=== PATIENT | male | born 2000 | race Asian ===

== ENCOUNTER 2024-07-13 22:11 | Emergency (ER) | payer MEDICAID ==
[~2024-07-13] VITALS: Ht 165.1 cm; Wt 74.0 kg
[2024-07-13 22:15] VITALS: O2SAT 100
[2024-07-13 23:47] LABS: HEMATOCRIT. 48.1 % (42.0-52.0); HEMOGLOBIN. 15.8 g/dL (14.0-18.0); MEAN CORPUSCULAR HGB CONC 32.8 g/dL (31.0-37.0); MEAN CORPUSCULAR VOLUME 91.4 fL (80.0-94.0); MEAN PLATELET VOLUME 8.7 fl (7.4-10.4); PLATELET 210 x1000/uL (130-400); RED BLOOD CELL COUNT 5.27 mill/uL (4.7-6.1); RED CELL DISTRIBUTION WIDTH 12.4 % (11.6-14.6); WHITE BLOOD COUNT 6.4 x1000/uL (4.5-11.0)
[2024-07-13] MEDS: SODIUM CHLORIDE 0.9% 1,000 ML IV ONE (23:48)
[2024-07-13 23:53] LABS: CARBON DIOXIDE 28 mEq/L (21-32); CHLORIDE 103 mEq/L (98-107); POTASSIUM 4.1 mEq/L (3.5-5.1); SODIUM 140 mEq/L (136-145)
[2024-07-13 23:54] LABS: CALCIUM 9.1 mg/dL (8.7-10.4); DIFFERENTIAL COMMENT 1
[2024-07-13 23:58] LABS: CREATININE 0.9 mg/dL (0.6-1.3)
[2024-07-13 23:59] LABS: GLUCOSE 118 mg/dL (70-105); UREA NITROGEN BLOOD 16 mg/dL (9-23)
[2024-07-14] LABS: ALANINE AMINOTRANSFERASE 44 IU/L (10-49)
[2024-07-14 00:01] LABS: ALBUMIN 3.9 g/dL (3.2-4.8); ASPARTATE AMINOTRANSFERASE 26 IU/L (<34); BILIRUBIN DIRECT 0.7 mg/dL (<=3.0); BILIRUBIN TOTAL 2.3 mg/dL (0.1-1.0); PROTEIN TOTAL 6.8 g/dL (6.0-8.3)
[2024-07-14] MEDS ORDERED: AZIT500T8 MT (00:06)
[2024-07-14] MEDS: ONDANSETRON HCL 4MG/2ML INJ IV ONE (00:26)
[2024-07-14 01:18] VITALS: BP 121/65; PULSE 104; RESP 21; TEMP 36.7; O2SAT 100
[2024-07-14 04:24] LABS: ATYPICAL LYMPHOCYTES 1; PLATELET ESTIMATE NORMAL
== END 2024-07-14 01:20 | disposition home or self-care (01) ==
LOC: ER 22:11
DX: R19.7 Diarrhea, unspecified (principal); J45.909 Unspecified asthma, uncomplicated; Z79.899 Other long term (current) drug therapy
CPT/HCPCS: 99284; 96361; 80076; 80048; 83690; 85025; 36415; 93005; 96374; J7030; J2405